=== PATIENT | female | born 1960 | race Caucasian/White ===

== ENCOUNTER 2016-10-03 07:24 | Emergency (ER) | payer SELFPAY ==
[~2016-10-03] VITALS: Ht 165.1 cm; Wt 112.3 kg
[~2016-10-03 07:24] MED LIST: ALBUAER3 INH; ASPI1TAB69 PO; FERR1TAB36 PO; GABA600T PO; IBUP800T23 PO; LISI40TA PO; MELO-1 PO; METO25TA3 PO; TYLE325T PO; UMEC1AER INH
[2016-10-03 07:33] VITALS: BP 157/98; PULSE 78; RESP 17; TEMP 97.8; O2SAT 99
[2016-10-03] MEDS ORDERED: FLUT1INH7 INH (07:54)
[2016-10-03] MEDS ORDERED: GEMF600T PO (07:54)
[2016-10-03] MEDS ORDERED: MOTR200T4 PO (08:11)
[2016-10-03] MEDS ORDERED: PENI500T PO (08:11)
--- NOTE | 2016-10-03 08:12 | PD ---
HPI Chief Complaint: Oral / Dental Pain or Problem Time Seen by Provider: 08:06 Travel History International Travel<30 days: No Contact w/Intl Traveler<30days: No Traveled to known affect area: No History of Present Illness HPI 56-year-old female presents to the ER today because of 2 days history of right upper molar toothache which she currently rates at a 5 out of 10. She denies any fevers, facial swelling, difficulty swallowing or other symptoms. She states that she has been having some nasal congestion and sore throat secondary to a viral syndrome which she has had for a week. Modifying Factors: None Associated Signs & Symptoms: Right upper molar toothache Risk Factors: None PFSH Past Medical History Arthritis: Yes Depression: Yes Cardiovascular Problems: Yes (HTN) High Cholesterol: Yes COPD: Yes Diminished Hearing: No Gastrointestinal Disorders: Yes (CHRONIC DIARRHEA) Hypertension: Yes Reproductive: Yes (HOT FLASHES) Immunizations Current: No Influenza Vaccination: No ?: Not Menopausal: Yes Tubal Ligation: Yes Past Surgical History Abdominal Surgery: Yes (LAPAROSCOPY) Oral Surgery: Yes (wisdom teeth) Other Surgery: Yes ( SPIDER BITE RT ABD) Social History Alcohol Use: Yes ("RARELY") Tobacco Use: No Substance Use: No Allergies-Medications (Allergen,Severity, Reaction): Coded Allergies: *MDRO Multi-Drug Resistant Organism (Unverified Adverse Reaction, Unknown , 10/03/16) 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 Reported Meds & Prescriptions Reported Meds & Active Scripts Active Reported Gemfibrozil 600 Mg Tab 600 Mg PO BIDAC Take 30 minutes prior to breakfast and dinner. Breo Ellipta Inh (Fluticasone/Vilanterol) 200-25 Mcg/Act Inh 1 Puff INH DAILY Use daily at the same time. Lisinopril 40 Mg Tab 40 Mg PO DAILY Metoprolol Tartrate 25 Mg Tab 12.5 Mg PO BID Review of Systems Except as stated in HPI: all other systems reviewed are Neg Physical Exam Narrative GENERAL: Well-nourished, well-developed middle age white female currently in mild distress. Awake and oriented 3. SKIN: Warm and dry. HEAD: Normocephalic. No facial edema or asymmetry. Nontender to palpation of the maxillary region, no underlying fluctuance. EYES: No scleral icterus. No injection or drainage. NECK: Supple, trachea midline. DENTAL: Notable for poor dentition and severe caries in the right maxillary molar area with several caries down to the dental roots, mild gingival edema without underlying fluctuance. No malocclusion. CARDIOVASCULAR: Regular rate and rhythm without murmurs, gallops, or rubs. RESPIRATORY: Breath sounds equal bilaterally. No accessory muscle use. GASTROINTESTINAL: Abdomen soft, non-tender, nondistended. MUSCULOSKELETAL: No cyanosis, or edema. BACK: Nontender without obvious deformity. No CVA tenderness. Data Data Last Documented VS Vital Signs Date Time Temp Pulse Resp B/P Pulse Ox O2 Delivery O2 Flow Rate FiO2 10/03/16 07:33 97.8 78 17 157/98 99 MDM Medical Decision Making Medical Screen Exam Complete: Yes Emergency Medical Condition: Yes Medical Record Reviewed: Yes Differential Diagnosis Dental caries/toothachewith no significant identifiable abscess Narrative Course At this point, my plan would be to put the patient on pain medication and antibiotics and I have directed her to follow-up with dentist regarding this issue. Return for any worsening in pain, swelling, fevers, and as needed. The plan was discussed with the patient and she states understanding. Diagnosis Primary Impression: Dental caries Med/Other Pt SpecificInfo: Prescription(s) given Scripts Ibuprofen (Motrin Ib)200 Mg Lru949 Mg PO Q6H PRN (PAIN SCALE 1 TO 10) #21 TAB Ref 0 Prov:Theresa Cochran MD 10/03/16 Penicillin V Potassium 500 Mg Nmg313 Mg PO Q6H 7 Days Ref 0 Prov:Theresa Cochran MD 10/03/16 Disposition: DISCHARGE HOME Condition: Stable Theresa Cochran MD Oct 03, 2016 08:12
[2016-10-03] MEDS ORDERED: IBUPROFEN 600 MG TAB PO ONE (08:15)
== END 2016-10-03 08:24 | disposition home or self-care (01) ==
LOC: PHEFT 07:24
DX: K02.9 Dental caries, unspecified (principal)
CPT/HCPCS: 99282